=== PATIENT | male | born 1970 | race Caucasian/White ===

== ENCOUNTER 2017-04-01 09:22 | Outpatient (CLI) | payer BC ==
--- NOTE | 2017-04-01 10:48 | RAD ---
KUB: INDICATION: Nocturia. COMPARISON: None. FINDINGS: Bowel gas pattern is nonobstructed. There are small nonobstructing calcifications seen within the le ft kidney. No suspicious calcifications are seen along the expected course of remaining collecting s ystems. No acute osseous abnormality is evident. IMPRESSION: 1. Left nephrolithiasis. 2. No acute abnormality. POS: [facility]
== END 2017-04-01 09:23 | disposition home or self-care (01) ==
LOC: RAD 09:22
PROVIDERS: ATTEND Urology
DX: R35.1 Nocturia (principal); N20.0 Calculus of kidney
CPT/HCPCS: 74000